=== PATIENT | female | born 2000 | race African-American/Black ===

== ENCOUNTER 2021-06-04 07:22 | Emergency (ER) | payer BC ==
[~2021-06-04] VITALS: Ht 177.8 cm; Wt 87.0 kg
[2021-06-04 07:27] VITALS: BP 131/79
[2021-06-04] MEDS ORDERED: AMOX-494 MT (07:43)
[2021-06-04] MEDS ORDERED: IBUPROFEN 400MG TABLET PO ONE (07:45)
== END 2021-06-04 08:02 | disposition home or self-care (01) ==
LOC: ER 07:22
DX: J02.9 Acute pharyngitis, unspecified (principal); Z90.49 Acquired absence of other specified parts of digestive tract; Z98.890 Other specified postprocedural states
CPT/HCPCS: 87070; 87430; 99283